=== PATIENT | female | born 1935 | race Caucasian/White ===

== ENCOUNTER 2017-04-16 14:19 | Inpatient (IN) | payer MEDICARE, OTHER ==
--- NOTE | ~2017-04-16 | HP ---
Unit #: [id number] #: [id number] Patient: ENRIQUE MORALES [id number] [address] [address] [id number] I MR#: [id number] NAME: ENRIQUE MORALES ROOM: 579 Age: 82 Sex: F Admission Date: 04/16/2017 : 1935 Attending Physician: Timothy Tamayo M.D. HISTORY AND PHYSICAL CHIEF COMPLAINT Cough and shortness of breath. HISTORY OF PRESENT ILLNESS Patient is an 82-year-old female. She has a past medical history significant for severe COPD. Uses Brovana and DuoNeb and an ex-smoker. The patient came in with complaints of cough, shortness of breath, and increasing sputum production for the last 2-3 days and was diagnosed with pneumonia and acute bronchitis on the CT chest. I am seeing the patient at bedside. Continues to complain of shortness of breath. REVIEW OF SYSTEMS Positive pallor. No edema, no cyanosis or jaundice. PAST MEDICAL HISTORY COPD. SOCIAL HISTORY Ex-smoker, no alcohol, and no drug use. FAMILY HISTORY None as per patient. MEDICATIONS She takes: 1. Brovana. 2. DuoNeb. 3. Lumigan. 4. Pulmicort. 5. Albuterol. ALLERGIES Aspirin, naproxen, and Spiriva. SURGICAL HISTORY None. PHYSICAL EXAMINATION VITAL SIGNS: Temperature 98, pulse 87, respirations 12, and blood pressure 135/79. NEUROLOGIC: Awake, alert, and oriented. No neuro deficit. HEENT: RODNEYLA. . Unit #: [id number] #: [id number] Patient: ENRIQUE MORALES NECK: Supple. No bruit. CHEST: Bilateral air entry. Bilateral mild rhonchi. . ABDOMEN: Nontender and soft. Bowel sounds positive. EXTREMITIES: Edema. DIAGNOSTIC STUDIES IMAGING: CT chest showed patchy areas of parenchymal density in the left lower lobe medially behind the heart and the largest 1 measures about 2.1 cm in diameter. These are likely inflammatory or infectious areas and the largest could resemble a mass. ASSESSMENT AND PLAN 1. Acute exacerbation of COPD. 2. Acute bronchitis. 3. Pneumonia. 4. CT chest. At this point, the plan is to admit the patient, continue IV steroid, IV antibiotic, bronchodilator, procalcitonin level, GI and DVT prophylaxes. Patient will need repeat imaging in 3-4 weeks for further evaluation. Please see orders for detailed plan. Thank you very much for this consultation. Dictated by Laxmi Cuevas TD: 04/18/2017 05:32 JOB #: [id number] HISTORY AND PHYSICAL Page 1 of 1 X Timothy Tamayo MD X HISTORY AND PHYSICAL
--- NOTE | ~2017-04-16 | DS ---
Unit #: [id number] #: [id number] Patient: ENRIQUE MORALES [id number] [address] [address] [id number] I MR#: [id number] NAME: ENRIQUE MORALES ROOM: 579 Age: 82 Sex: F Admission Date: 04/16/2017 : 1935 Discharge Date: Attending Physician: Timothy Tamayo M.D. DISCHARGE SUMMARY DISCHARGE DIAGNOSES 1. Pneumonia. 2. Respiratory failure. 3. Chronic obstructive pulmonary disease exacerbation. HOSPITAL COURSE Patient was admitted with complaint of shortness of breath. The patient was found to be in respiratory failure, has pneumonia, was treated with IV antibiotics. Bronch was done. Cultures so far negative. The patient will be discharged home. Follow with primary care physician. Follow with me in two weeks. DISCHARGE MEDICATIONS As per medication reconciliation. Please see orders for detailed plan. Dictated by... Laxmi Cuevas/darrell TD: 04/21/2017 14:04 JOB #: [id number] DISCHARGE SUMMARY Page 1 of 1 X Timothy Tamayo MD X DISCHARGE SUMMARY
--- NOTE | ~2017-04-16 | OR ---
Unit #: [id number] #: [id number] Patient: ENRIQUE MORALES [id number] [address] [address] [id number] I MR#: [id number] NAME: ENRIQUE MORALES ROOM: 579 Date of Procedure: 04/19/2017 Admission Date: 04/16/2017 Surgeon: Timothy Tamayo M.D. : 1935 Attending Physician: Timothy Tamayo M.D. PROCEDURE OPERATIVE NOTE PREPROCEDURE DIAGNOSIS Pneumonia. POSTPROCEDURE DIAGNOSIS Pneumonia. PROCEDURE PERFORMED Diagnostic bronchoscopy. INDICATION Pneumonia. DETAILS OF THE PROCEDURE After placing the patient in proper position, bronchoscope introduced through the oral cavity. Vocal cords appeared to be symmetrically moving toward the midline. Trachea was normal. Maanda was sharp. We examined the right upper, right middle, right lower lobe, left upper lobe, lingula and left lower lobe. No endobronchial lesion was found. There was thick mucoid secretion in both lungs, which was therapeutically suction, and then we did a bronchoalveolar lavage in the left lower lobe area with 100 mL saline in and 20 mL back. The patient tolerated the procedure very well. No complication happened. Dictated by... Laxmi Cuevas TD: 04/21/2017 14:00 JOB #: [id number] PROCEDURE OPERATIVE NOTE Page 1 of 1 X Timothy Tamayo MD X PROCEDURE OPERATIVE NOTE
[2017-04-16] MEDS ORDERED: BROVANA15 MCG/2 M INH (20:38)
[2017-04-16] MEDS ORDERED: COMBIVENT U/D3 ML INH (20:40)
[2017-04-16] MEDS ORDERED: LUMIGAN5 ML OU (20:43)
[2017-04-16] MEDS ORDERED: ALBUTEROL20 ml INH (20:44)
[2017-04-16] MEDS ORDERED: PULMICORT0.5 MG/21 INH (20:44)
[2017-04-17 08:19] LABS: HEMATOCRIT 38.6 % (35.0-45.0); HEMOGLOBIN 12.3 gm/dL (12.0-16.0); LYMPHOCYTE# 0.8 X10e3 (1.0-3.5); LYMPHOCYTE% 3.5 % (17.0-45.0); MEAN CELL VOLUME 88.3 FL (83-96); MEAN CORPUSCULAR HEMOGLOBIN 28.1 PG (28-34); MEAN CORPUSCULAR HGB CONC 31.9 g/dL (30-36); MEAN PLATELET VOLUME 8.8 FL (6.5-11.5); MONOCYTE# 0.3 X10e3 (0-1.0); MONOCYTE% 1.4 % (3.0-12.0); NEUTROPHIL# 22.6 X10e3 (1.5-7.1); NEUTROPHIL% 95.1 % (40-75); PLATELET COUNT 277 X10e3 (140-420); RED BLOOD COUNT 4.37 X10e (3.90-5.30); WHITE BLOOD COUNT 23.8 X10e3 (4.0-10.5)
[2017-04-17 08:20] LABS: DIFF IND YES
[2017-04-17 08:42] LABS: ANISOCYTOSIS SL; PLATELET ESTIMATE NORMAL (NORMAL); RBC NORMAL YES
[2017-04-17 09:22] LABS: ALBUMIN SERUM 3.7 g/dL (3.5-5.0); BILIRUBIN,TOTAL 1.1 mg/dL (0.2-2.0); BUN/CREATININE RATIO 32.85; CALCIUM SERUM 9.2 mg/dL (8.4-10.2); CREATININE SERUM 0.7 mg/dL (0.6-1.4); GLOM FILT RATE Estimated 80.1 mL/min (>60); POTASSIUM 4.5 mmol/L (3.5-5.1); PROTEIN TOTAL SERUM 6.6 g/dL (6.0-8.3)
[2017-04-18 05:29] LABS: HEMATOCRIT 37.2 % (35.0-45.0); MEAN CELL VOLUME 87.5 FL (83-96); MEAN CORPUSCULAR HEMOGLOBIN 28.2 PG (28-34); MEAN CORPUSCULAR HGB CONC 32.2 g/dL (30-36); MEAN PLATELET VOLUME 9.3 FL (6.5-11.5); RED BLOOD COUNT 4.25 X10e (3.90-5.30); RED CELL DISTRIBUTION WIDTH 14.4 % (11.0-15.5); WHITE BLOOD COUNT 26.5 X10e3 (4.0-10.5)
[2017-04-18 06:54] LABS: BUN/CREATININE RATIO 42.5; CREATININE SERUM 0.8 mg/dL (0.6-1.4); GLOM FILT RATE Estimated 68.2 mL/min (>60); POTASSIUM 4.3 mmol/L (3.5-5.1)
[2017-04-18 10:20] LABS: LEGIONELLA AG URINE NEG (NEG)
[2017-04-19 06:11] LABS: HEMATOCRIT 36.4 % (35.0-45.0); HEMOGLOBIN 11.8 gm/dL (12.0-16.0); MEAN CELL VOLUME 87.6 FL (83-96); MEAN CORPUSCULAR HEMOGLOBIN 28.3 PG (28-34); MEAN CORPUSCULAR HGB CONC 32.3 g/dL (30-36); MEAN PLATELET VOLUME 9.1 FL (6.5-11.5); RED BLOOD COUNT 4.15 X10e (3.90-5.30); WHITE BLOOD COUNT 18.4 X10e3 (4.0-10.5)
[2017-04-19 07:16] LABS: ALBUMIN SERUM 3.5 g/dL (3.5-5.0); BILIRUBIN,TOTAL 0.1 mg/dL (0.2-2.0); BUN/CREATININE RATIO 41.11; CALCIUM SERUM 8.9 mg/dL (8.4-10.2); CREATININE SERUM 0.9 mg/dL (0.6-1.4); GLOM FILT RATE Estimated 59.2 mL/min (>60); POTASSIUM 4.5 mmol/L (3.5-5.1); PROTEIN TOTAL SERUM 6.5 g/dL (6.0-8.3)
[2017-04-19 11:12] LABS: BODY FLUID SOURCE BRONCHIAL LAVAGE
[2017-04-19 11:13] LABS: BODY FLUID APPEARANCE TURBID
[2017-04-20 05:30] LABS: HEMATOCRIT 37.8 % (35.0-45.0); HEMOGLOBIN 11.9 gm/dL (12.0-16.0); MEAN CELL VOLUME 88.3 FL (83-96); MEAN CORPUSCULAR HEMOGLOBIN 27.8 PG (28-34); MEAN CORPUSCULAR HGB CONC 31.5 g/dL (30-36); MEAN PLATELET VOLUME 9.5 FL (6.5-11.5); RED BLOOD COUNT 4.28 X10e (3.90-5.30); RED CELL DISTRIBUTION WIDTH 13.8 % (11.0-15.5); WHITE BLOOD COUNT 12.9 X10e3 (4.0-10.5)
[2017-04-20 06:24] LABS: ALBUMIN SERUM 3.3 g/dL (3.5-5.0); BILIRUBIN,TOTAL 0.6 mg/dL (0.2-2.0); BUN/CREATININE RATIO 43.75; CALCIUM SERUM 8.6 mg/dL (8.4-10.2); CREATININE SERUM 0.8 mg/dL (0.6-1.4); GLOM FILT RATE Estimated 68.2 mL/min (>60); POTASSIUM 4.7 mmol/L (3.5-5.1); PROTEIN TOTAL SERUM 5.9 g/dL (6.0-8.3)
[2017-04-21 06:36] LABS: HEMATOCRIT 37.6 % (35.0-45.0); HEMOGLOBIN 12.2 gm/dL (12.0-16.0); MEAN CELL VOLUME 86.6 FL (83-96); MEAN CORPUSCULAR HEMOGLOBIN 28.1 PG (28-34); MEAN CORPUSCULAR HGB CONC 32.4 g/dL (30-36); RED BLOOD COUNT 4.35 X10e (3.90-5.30); RED CELL DISTRIBUTION WIDTH 13.7 % (11.0-15.5); WHITE BLOOD COUNT 10.8 X10e3 (4.0-10.5)
[2017-04-21 07:04] LABS: ALBUMIN SERUM 3.2 g/dL (3.5-5.0); BILIRUBIN,TOTAL 0.5 mg/dL (0.2-2.0); BUN/CREATININE RATIO 38.75; CALCIUM SERUM 8.5 mg/dL (8.4-10.2); CREATININE SERUM 0.8 mg/dL (0.6-1.4); GLOM FILT RATE Estimated 68.2 mL/min (>60); POTASSIUM 4.2 mmol/L (3.5-5.1)
[2017-04-21] MEDS ORDERED: PREDNISONE PO (14:47)
[2017-04-21] MEDS ORDERED: LEVAQUIN750 MG PO (14:48)
== END 2017-04-21 15:27 | disposition home or self-care (01) | DRG 166 ==
LOC: C5C 19:25 → CEDOF 19:25 → UNDOADMIN 19:25 → C5C 19:57 → CEDOF 19:57 → C5C 20:30
PROVIDERS: Internal Medicine
PROC: 0B9M8ZZ Drainage of Bilateral Lungs, Via Natural or Artificial Opening Endoscopic (ICD-10-PCS; principal; 2017-04-19 09:30)
PROC: 0B9J8ZX Drainage of Left Lower Lung Lobe, Via Natural or Artificial Opening Endoscopic, Diagnostic (ICD-10-PCS; 2017-04-19 09:30)
DX: J96.90 Respiratory failure, unspecified, unspecified whether with hypoxia or hypercapnia (principal); J18.9 Pneumonia, unspecified organism; J44.0 Chronic obstructive pulmonary disease with (acute) lower respiratory infection; Z90.49 Acquired absence of other specified parts of digestive tract
CPT/HCPCS: 80048; 80053; 82308; 82947; 85025; 85027; 87070; 87102; 87116; 87205; 87206; 87252; 87254; 87278; 87449; 87899; 88108; 88305; 88312; 89051; 94640; 94664; 94760; J0171; J1650; J1956; J2250; J2930; J3010